=== PATIENT | female | born 1955 | race Caucasian/White ===

== ENCOUNTER 2019-01-06 12:20 | Emergency (ER) | payer MEDICARE, MEDICAID ==
[~2019-01-06] VITALS: Ht 162.6 cm; Wt 55.0 kg
[~2019-01-06 12:20] MED LIST: ALBU2SYR3 PO
[2019-01-06 14:38] LABS: BASOPHILS % 0.8 % (0.0-2.0); EOSINOPHILS % 3.5 % (0.0-5.0); HEMATOCRIT. 36.3 % (36.0-48.0); LYMPHOCYTES % 20.7 % (20.0-50.0); MEAN CORPUSCULAR HEMOGLOBIN 31.2 pg (28.0-32.0); MEAN CORPUSCULAR VOLUME 94.3 fL (81.0-99.0); MEAN PLATELET VOLUME 10.9 fl (7.4-10.4); MONOCYTES % 9.6 % (2.0-8.0); NEUTROPHILS % 65.4 % (40.0-76.0); PLATELET 89 x1000/uL (130-400); RED BLOOD CELL COUNT 3.85 mill/uL (4.2-5.4); RED CELL DISTRIBUTION WIDTH 13.5 % (11.6-14.6)
[2019-01-06 14:40] LABS: CHLORIDE 106 mEq/L (98-107)
[2019-01-06 14:45] LABS: ETHANOL BLOOD < 10 mg/dL
[2019-01-06 14:49] LABS: CREATINE KINASE 28 IU/L (26-192)
[2019-01-06] MEDS ORDERED: SODIUM CHLORIDE 0.9% 1000ML BAG (SEPSIS BOLUS) IV ONE (15:00)
[2019-01-06 15:18] LABS: CLARITY URINE CLEAR (CLEAR); COLOR URINE YELLOW (YELLOW); KETONES URINE NEGATIVE (NEGATIVE); LEUKOCYTE ESTERASE URINE 2+ (NEGATIVE); NITRITE URINE NEGATIVE (NEGATIVE); OCCULT BLOOD URINE NEGATIVE (NEGATIVE); PH URINE 5.5 (4.5-8.0); PROTEIN URINE NEGATIVE (NEGATIVE)
[2019-01-06 15:52] LABS: *AMPHETAMINES SCREEN URINE NEGATIVE (NEGATIVE)
[2019-01-06 15:53] LABS: *BARBITURATES SCREEN URINE NEGATIVE (NEGATIVE); *BENZODIAZEPINES SCREEN URINE NEGATIVE (NEGATIVE); *COCAINE SCREEN URINE NEGATIVE (NEGATIVE); METHADONE URINE SCREEN NEGATIVE (NEGATIVE); OPIATES URINE SCREEN NEGATIVE (NEGATIVE); PHENCYCLIDINE URINE SCREEN NEGATIVE (NEGATIVE)
[2019-01-06 15:54] LABS: CANNABINOID URINE SCREEN NEGATIVE (NEGATIVE)
[2019-01-06] MEDS ORDERED: CEFTRIAXONE 1 G PREMIX 50 ML IV ONE (16:00)
[2019-01-06] MEDS ORDERED: AMOXICILLIN 500 MG CAPSULE PO ONE (16:00)
[2019-01-06 19:40] VITALS: BP 109/65
== END 2019-01-06 19:40 | disposition home or self-care (01) ==
LOC: ER 12:48
DX: N30.00 Acute cystitis without hematuria (principal); I11.0 Hypertensive heart disease with heart failure; I50.9 Heart failure, unspecified
CPT/HCPCS: 36415; 80053; 80305; 81003; 82140; 82550; 83605; 85025; 87040; 87186; 96360; 99283; J7030